=== PATIENT | female | born 1960 | race Caucasian/White ===

== ENCOUNTER 2017-04-13 21:59 | Emergency (ER) | payer SELFPAY ==
[~2017-04-13] VITALS: Ht 167.6 cm; Wt 68.0 kg
[2017-04-13] MEDS ORDERED: IBUPROFEN 800 MG TABLET PO ONE (22:45)
[2017-04-13 22:51] LABS: *URINE HCG, QUAL NEGATIVE (NEGATIVE)
[2017-04-13 22:52] LABS: *BILIRUBIN,URIN NEGATIVE (NEGATIVE); *BLOOD, URINE NEGATIVE (NEGATIVE); *CLARITY,URINE CLEAR (CLEAR); *COLOR,URINE YELLOW (YELLOW); *KETONES,URINE NEGATIVE (NEGATIVE); *PROTEIN,URINE NEGATIVE (NEGATIVE); *UROBILINOGEN,URINE 0.2 E.U./dl (NORMAL); LEUKOCYTE ESTERASE ,URINE 1+ (NEGATIVE); NITRITE, URINE NEGATIVE (NEGATIVE); UGLUCOSE NEGATIVE (NEGATIVE)
[2017-04-13 22:58] LABS: BACTERIA,URINE NONE SEEN /HPF (NONE SEEN); RBC,URINE 0-3 /HPF (0-3); SQUAMOUS EPITHELIAL CELL,UR FEW /HPF (NONE SEEN)
[2017-04-13] MEDS ORDERED: IBUPROFEN 800 MG TABLET ONE (23:02)
--- NOTE | 2017-04-14 00:15 | NUR ---
Patient discharged to home in stable conditon. Written and verbal after care instructions given. Patient verbalizes understanding of instructions.
== END 2017-04-14 00:16 | disposition home or self-care (01) ==
LOC: ER 21:59
DX: S13.4XXA Sprain of ligaments of cervical spine, initial encounter (principal); S84.11XA Injury of peroneal nerve at lower leg level, right leg, initial encounter; S06.0X0A Concussion without loss of consciousness, initial encounter; S02.2XXA Fracture of nasal bones, initial encounter for closed fracture; V43.92XA Unspecified car occupant injured in collision with other type car in traffic accident, initial encounter; Y93.89 Activity, other specified; Y92.410 Unspecified street and highway as the place of occurrence of the external cause; Y99.8 Other external cause status
CPT/HCPCS: 70450; 71010; 72125; 73590; 84703; A4663